=== PATIENT | female | born 1985 | race Asian ===

== ENCOUNTER → 2017-02-02 | Outpatient (CLI) | payer BC ==
[~2017-02-02] MED LIST: MTR600X PO; OXYC5TAB PO; PRENTAB26 PO
--- NOTE | 2017-02-02 14:56 | DIAGNOSTIC IMAGING REPORT ---
THORACIC SPINE 3 VIEWS ROUTINE CLINICAL HISTORY: BACK PAIN COMPARISON STUDY: No previous studies for comparison. FINDINGS: The paraspinal line is not displaced. There is a minimal spinal curvature. There are minor degenerative changes. No fractures subluxations or destructive lesions are visualized on conventional radiographic evaluation. IMPRESSION: Minor degenerative change. No fractures subluxations or destructive lesions are visualized Electronically signed by: Asad Epps M.D. 02/02/2017 2:55 PM Dictated Date/Time: 02/02/2017 2:54 PM
== END | disposition home or self-care (01) ==
LOC: C.RAD1850 14:38
PROVIDERS: ATTEND Family Medicine
DX: M54.9 Dorsalgia, unspecified (principal)

== ENCOUNTER → 2017-02-26 | Outpatient (CLI) | payer BC ==
--- NOTE | 2017-02-26 09:57 | DIAGNOSTIC IMAGING REPORT ---
CT NECK WITHOUT INTRAVENOUS CONTRAST HISTORY: Right-sided neck tenderness. Hoarseness of voice. REFLUX TECHNIQUE: Multiaxial CT images of the neck were performed without the use of intravenous contrast. COMPARISON STUDY: None. FINDINGS: The visualized brain parenchyma and orbits are unremarkable. Evaluation for a mass within the neck is suboptimal without the use of intravenous contrast. However, there is no significant lymphadenopathy or masses identified within the neck. Scattered cervical lymph nodes are subcentimeter in short axis diameter and do not meet CT criteria for pathologic involvement. The visualized lungs are clear. No suspicious lytic or blastic osseous lesions. The visualized paranasal sinuses and mastoid air cells are clear. There is an unerupted 8 mm tooth within the right maxilla. A slightly heterogeneous thyroid gland. There is suggestion of a 6 mm left thyroid nodule. There are few punctate calcifications within the bilateral palatine tonsils. Otherwise, the major mucosal airway surfaces are intact. The epiglottis and prevertebral soft tissues are normal in thickness. The parotid and submandibular glands are symmetric. IMPRESSION: 1. No definite lymphadenopathy or masses with in this unenhanced study of the neck. 2. Incidental note is made of an unerupted tooth within the right maxilla. 3. A few punctate calcifications within the bilateral palatine tonsils. Electronically signed by: Alonso Alonso M.D. 02/26/2017 9:56 AM Dictated Date/Time: 02/26/2017 9:49 AM
== END | disposition home or self-care (01) ==
LOC: C.CTS 09:19
PROVIDERS: ATTEND Family Medicine
DX: R49.0 Dysphonia (principal)

== ENCOUNTER 2023-06-08 11:15 | Observation (INO) ==
--- NOTE | 2023-06-08 12:53 | Emergency Department Note ---
History of Present Illness General Chief complaint: Arm Pain Stated complaint: L ARM INFECTION GETTING WORSE IN ER LAST FRI Time Seen by Provider: 06/08/23 12:27 History of Present Illness Maximum Pain Intensity: 8 38-year-old female who presents to the emergency department for evaluation of infection of the left forearm. Patient was evaluated in the ED on 06/05 for similar symptoms. She was initially placed on doxycycline by her PCP on 06/04 for cellulitis of her left forearm. On 06/05 there was evidence of an abscess to the left volar forearm which was I&D. She was advised to transition to Keflex and Bactrim antibiotics if she saw no improvement with the doxycycline in 48 hours. Patient states she started Keflex/Bactrim yesterday morning. She is concerned that her infection is getting worse as the redness is not spreading and is getting more painful and warmer to touch. She denies any fever/chills, nausea/vomiting. She does state that she feels tired and has low energy. She is not exactly sure what the initial wound was from. She has been performing daily dressing changes. She denies any further drainage from the wound. Patient reports her brother and mother have an allergy to penicillins where they "passed out" she does not personally have any known allergies. She is tolerating the Keflex and Bactrim without any issues. Home Medications Medication Instructions Recorded Confirmed Type cephalexin 500 mg capsule 500 mg PO Q8H 7 days #21 caps 06/05/23 06/08/23 Rx sulfamethoxazole 800 1 tab PO BID cellulitis 7 days 06/05/23 06/08/23 Rx mg-trimethoprim 160 mg tablet #14 tabs (Bactrim DS) hydroxyzine HCl 25 mg tablet 25 mg PO HS 06/08/23 06/08/23 History Allergies Allergy/AdvReac Type Severity Reaction Status Date / Time Penicillins Allergy Severe SHORTNESS Verified 06/08/23 15:18 OF BREATH Past Med/Surg History Medical History Dermatographia Uterine size-date discrepancy History of Transitory mood disturbance History of palpitations Oligomenorrhea History of History of sebaceous cyst History of menorrhagia History of cervicitis Fertility testing Dichorionic diamniotic twin , antepartum Carrier of group B Streptococcus Surgical History No pertinent past surgical history History of excision of lesion Face History of dilation and curettage History of section Family History Mother Fibroids Denies family history of Ovarian cancer Breast cancer Colorectal cancer Social History Smoking Status: Never smoker Do You Dip or Chew Tobacco: No; Hx Alcohol Use: No Hx Substance Use: No Preferred Language: French Communication Ability: Effective Cook Pie Required: No Beliefs That Will Affect Care: None Current Living Situation: Spouse Other Information That Helps Us Care for You: No Feels Safe at Home: Yes Safety Concerns: Feels Safe At This Time Assistive Devices: None Physical Exam Vital Signs Vital Signs - 24 hr 06/08/23 12:09 Temperature 36.7 C Temperature Source Temporal Artery Scan Pulse Rate 87 Respiratory Rate 18 Blood Pressure 124/86 Blood Pressure Mean 98 Pulse Oximetry 100 Oxygen Delivery Method Room Air Sepsis New/Unexplained Change in Mental Status No Sepsis Action Taken by Nursing No Action Required Constitutional: alert and oriented x3. no acute distress. nontoxic Respiratory: lungs are clear to auscultation without wheezes, rhonchi, or rales bilaterally. equal chest rise. normal respiratory effort, no accessory muscle use. Cardiovascular: normal heart sounds without murmur. regular rate and rhythm. MSK: left volar forearm erythematous and indurated from wrist to AC fossa. Distal residual abscess noted, no fluctuance or active drainage. Infection does not cross joint line. Wrist and elbow ROM intact. Peripheral vascular: upper extremities warm and well perfused with palpable radial pulses. Brisk cap refill. Sensation grossly intact Psych:appropriate mood and affect. Course Administered Medications Daptomycin 200 mg/ Syringe 4 mls @ 2 mls/min IV Q24H [facility]; Protocol Stop: 06/15/23 16:59 Last Admin: 06/08/23 17:31 Dose: 2 mls/min Documented By: [facility] Discontinued Medications Ceftriaxone Sodium (Rocephin) 2,000 mg in 50 mls @ 100 mls/hr IV NOW STA Stop: 06/08/23 13:17 Last Infusion: 06/08/23 13:28 Dose: Infused Documented By: Admin: 06/08/23 13:06 Dose: 100 mls/hr Documented By: [facility] Medical Decision Making Differential Diagnosis cellulitis, abscess, foreign body, insect bite, MRSA, sepsis as well as other pathologies Laboratory Data Attestation: I reviewed the patient's lab results. 06/08/23 13:01 06/08/23 13:01 Lab Results 06/08/23 Range/Units 13:01 WBC 5.82 (4.8-10.8) K/ul RBC 4.32 (4.20-5.40) M/uL Hgb 13.0 (12.0-16.0) g/dl Hct 39.8 (37.0-47.0) % MCV 92.1 (80.0-100.0) fL MCH 30.1 (25.0-34.0) pg MCHC 32.7 (32.0-36.0) g/dL RDW Std Deviation 43.7 (36.4-46.3) fL RDW Coeff of Leia 12.9 (11.5-14.5) % Plt Count 281 (130-400) K/uL MPV 9.7 (9.4-12.4) fL Immature Gran % (Auto) 0.3 % Neut % (Auto) 69.7 % Lymph % (Auto) 20.8 % Mobile % (Auto) 6.7 % Eos % (Auto) 2.2 % Baso % (Auto) 0.3 % Neut # (Auto) 4.05 (1.40-6.50) K/uL Lymph # (Auto) 1.21 (1.20-3.40) K/uL Mobile # (Auto) 0.39 (0.11-0.59) K/uL Eos # (Auto) 0.13 (0.00-0.50) K/uL Baso # (Auto) 0.02 (0.00-0.20) K/uL Immature Gran # (Auto) 0.02 (0.01-0.20) K/uL Sodium 137 (136-145) mmol/L Potassium 3.6 (3.5-5.1) mmol/L Chloride 103 (98-107) mmol/L Carbon Dioxide 26 (21-32) mmol/L Anion Gap 8 (3-11) BUN 12 (6-23) mg/dl Creatinine 0.73 (0.6-1.2) mg/dl Est Cr Clr Drug Dosing 86.4 ml/min Est GFR ( Amer) 121.1 ml/min Est GFR (Non-Af Amer) 104.5 ml/min BUN/Creatinine Ratio 16.4 (10-20) Glucose 83 (70-99(Fasting)) mg/dl Calcium 9.7 (8.6-10.3) mg/dl Total Bilirubin 0.4 (0.2-1.0) mg/dl AST 15 (13-39) U/L ALT 11 (7-52) U/L Alkaline Phosphatase 51 (34-104) U/L Total Protein 8.4 H (6.0-8.3) gm/dl Albumin 4.5 (3.4-5.0) gm/dl Globulin 3.9 (2.5-4.0) gm/dl Albumin/Globulin Ratio 1.2 (0.9-2) Anaplasma Smear See Comment Babesia Smear See Comment Lyme Disease Screen Negative (Negative) MDM Narrative 38-year-old female who presents to the emergency department for evaluation of left arm infection. Reviewed pertinent visits and past medical history performed. Vital signs in ED stable, afebrile. Patient was seen and evaluated as above. She is currently being treated for left forearm cellulitis. I&D performed of an abscess on 06/05. Unfortunately wound cultures were not obtained. She was initially on doxycycline since 06/04 but transition to Keflex and Bactrim yesterday for concerns of no improvement. She returned to the emergency department for concerns of worsening infection despite treatment. IV access was established and labs were obtained. CBC without leukocytosis or acute anemia. CMP without electrolyte abnormalities. Renal function within normal limits. LFTs unremarkable. On exam, patient is nontoxic-appearing in no acute distress. The left volar forearm is erythematous and indurated from the wrist to the AC fossa. On the distal forearm there is a small superficial abscess noted. There is no active drainage. The left upper extremity is neurovascularly intact. She was medicated with IV Rocephin empirically. She declined need for pain medication. Upon reassessment, patient remained stable without concerns. She was updated on all exam findings and test results. Workup today consistent with cellulitis to the left arm. She does not appear septic. Labs and vital signs reassuring. At this time, I do feel patient would benefit from admission to the hospital for IV antibiotics as this is likely outpatient treatment failure. She was agreeable to plan. Case was discussed with hospitalist, Jatinder Tomlin PA-C, who graciously accepted patient to their service for continued management. She was admitted in stable condition. Impression & Plan Cellulitis and abscess of upper extremity Discharge Plan Visit Data Chief Complaint: Arm Pain Stated Complaint: L ARM INFECTION GETTING WORSE IN ER LAST FRI ED Provider: Nikhil Vaughn ED Midlevel Provider: Isaura Patel Discharge Problem: Cellulitis and abscess of upper extremity Patient Disposition: Admitted As Inpatient Discharge Instructions Interventions: ED Discharge Assessment Last Done: 06/08/23 17:51
[2023-06-08] MEDS: cefTRIAXone SODIUM 2,000 MG/50 ML BAG IV STA (13:06)
[2023-06-08 13:24] LABS: Basophils # (auto) 0.02 K/uL (0.00-0.20); Basophils % (auto) 0.3 %; Eosinophils # (auto) 0.13 K/uL (0.00-0.50); Eosinophils % (auto) 2.2 %; Hematocrit (blood only) 39.8 % (37.0-47.0); Immature Granulocytes # (auto) 0.02 K/uL (0.01-0.20); Immature Granulocytes % (auto) 0.3 %; Lymphocytes # (auto) 1.21 K/uL (1.20-3.40); Lymphocytes % (auto) 20.8 %; Mean Corpuscular Hemoglobin 30.1 pg (25.0-34.0); Mean Corpuscular Hgb Conc 32.7 g/dL (32.0-36.0); Mean Corpuscular Volume 92.1 fL (80.0-100.0); Mean Platelet Volume 9.7 fL (9.4-12.4); Monocytes # (auto) 0.39 K/uL (0.11-0.59); Monocytes % (auto) 6.7 %; Neutrophils # (auto) 4.05 K/uL (1.40-6.50); Neutrophils % (auto) 69.7 %; Platelet Count 281 K/uL (130-400); RDW Coefficient of Variation 12.9 % (11.5-14.5); RDW Standard Deviation 43.7 fL (36.4-46.3); Red Blood Count 4.32 M/uL (4.20-5.40); White Blood Count 5.82 K/ul (4.8-10.8)
[2023-06-08 13:42] LABS: Albumin Globulin Ratio 1.2 (0.9-2); Albumin Level 4.5 gm/dl (3.4-5.0); BUN Creatinine Ratio 16.4 (10-20); Bilirubin,Total 0.4 mg/dl (0.2-1.0); Calcium 9.7 mg/dl (8.6-10.3); Creatinine Clr Calc Pharmacy 86.4 ml/min; Est GFR (African American) 121.1 ml/min; Est GFR (Non-African American) 104.5 ml/min; Globulin 3.9 gm/dl (2.5-4.0); Potassium 3.6 mmol/L (3.5-5.1); Total Protein 8.4 gm/dl (6.0-8.3)
[2023-06-08] MEDS ORDERED: ACETAMINOPHEN 325 MG TAB PO PRN (14:56)
[2023-06-08] MEDS ORDERED: traMADol HCL 50 MG TABLET PO PRN (15:27)
--- NOTE | 2023-06-08 15:42 | History & Physical Report ---
Date of Service June 08, 2023 Assessment & Plan (1) Cellulitis and abscess of upper extremity: Plan: -Admit to med/surge -Currently stable and non-toxic appearing -Returned to the ED on 06/08/23 after having a left forearm abscess drained in the [facility] ED on 06/05/23 -Patient was on Doxycycline from 06/04-06/06 and was switched to Keflex and Bactrim starting 06/07/23 without improvement in symptoms -She has been afebrile and without leukocytosis -While the patient's symptoms did not improve with Doxycycline, we will obtain lyme testing to rule out possible infection for completon of her workup -See Dr. Ramsey's attestation for description of bedside US and drainage -Culture or drained fluid was obtained -S/P one dose of Ceftriaxone in the ED -For now we will continue with Ceftriaxone and Daptomycin -Follow culture results -PRN tylenol and tramadol for pain -Regular diet -AM CBC, BMP Plan The patient was discussed with Dr. Ramsey at the time of the admission History of Present Illness Chief Complaint: Worsening left forearm infection Primary Care Provider: Dangeloheather Evans Vela is a 38 year old female with no significant PMH who presented to the [facility] ED on 06/08/23 due to concerns for worsening left forearm infection/cellulitis. She remained stable in the ED with CBC and CMP WNL. Per the patient, she originally noted a small, round, and firm blister-like abnormality on the ventral aspect of her left forearm approximately 2-3 months ago. She denies any trauma or skin damage to the area prior to this abnormality forming. It was not bothering her so she left it alone. On 06/03 the area started to become erythematous and tender to palpation. She was seen by her PCP on 06/04 for this issue, they attempted a needle aspiration of the site but were unable to obtain a sample. She was started on Doxycycline on 06/04. She was seen in the PCP's office again on 06/05 as the erythema, swelling, and pain were increasing. Due to this they sent her to the ED for further evaluation. Per the patient and the ED note, the patient had the area lanced. She did not watch herself, but per the ED documentation the patient did have pustulous drainage. The area was reported to be irrigated thoroughly with normal saline and the area was inspected for possible foreign bodies. She was instructed to continue her Doxycycline for a total of 48 hours from initial prescription on 06/04/23. She was prescribed Keflex and Bactrim to be started if her symptoms progressed after 48 hours of Doxycycline. She states that she started the Bactrim and Keflex on the morning of 06/07 due to progressive erythema, swelling, and pain. Due to her symptoms progressing on Bactrim and Keflex she returned to the ED today. She denies recent fever, chills, nausea, vomiting, chest pain, SOB, LUE paresthesias, difficulty closing/opening left hand, and recent trauma to the r egion. After discussing risks/benefits of attempting another incision/drainage of the abscess, the patient elected to proceed. A bedside, US Guided I&D of the left forearm abscess was performed by Dr. Ramsey with culture obtained. Please refer to Dr. Ramsey's attestation for any changes to the treatment plan Allergies Allergy/AdvReac Type Severity Reaction Status Date / Time Penicillins Allergy Severe SHORTNESS Verified 06/08/23 15:18 OF BREATH Home Medications Medication Instructions Recorded Confirmed Type cephalexin 500 mg capsule 500 mg PO Q8H 7 days #21 caps 06/05/23 06/08/23 Rx sulfamethoxazole 800 1 tab PO BID cellulitis 7 days 06/05/23 06/08/23 Rx mg-trimethoprim 160 mg tablet #14 tabs (Bactrim DS) hydroxyzine HCl 25 mg tablet 25 mg PO HS 06/08/23 06/08/23 History Past Med/Surg History Medical History Dermatographia Uterine size-date discrepancy History of Transitory mood disturbance History of palpitations Oligomenorrhea History of History of sebaceous cyst History of menorrhagia History of cervicitis Fertility testing Dichorionic diamniotic twin , antepartum Carrier of group B Streptococcus Surgical History No pertinent past surgical history History of excision of lesion Face History of dilation and curettage History of section Family History Mother Fibroids Denies family history of Ovarian cancer Breast cancer Colorectal cancer Social History Smoking Status: Never smoker Do You Dip or Chew Tobacco: No; Hx Alcohol Use: No Hx Substance Use: No Preferred Language: Spanish Feels Safe at Home: Yes Physical Exam Physical Exam: Physical Exam: General: In no acute distress, stated age, well-nourished, good hygiene HEENT: Normocephalic, atraumatic, no scleral icterus, pupils around round, symmetrical, and reactive to light, moist mucus membranes, trachea midline, no t hyromegaly Chest/Pulm: No respiratory distress, symmetrical chest expansion, clear breath sounds throughout Cardiac: RRR, no murmurs noted Abdomen: Negative for ascites and bruising, normoactive bowel sounds, soft, non-tender to palpation throughout Musculoskeletal: No acute trauma noted on inspection of the left elbow, forearm, wrist, and hand, patient able to open/close left hand without limitation or significant pain Extremities: Radial, dorsalis pedis, and posterior tibial pulses are intact and symmetrical, no edema noted in the BL LE's Skin: Central area of swelling/erythema on the ventral aspect of the left forearm with large surrounding area of erythema from the left proximal wrist to the mid left forearm, no current drainage note from the central raised area, no signs of swelling/erythema at the left elbow or the rest of the LUE Neuro: Alert and oriented to person, place, month, year, and president, no focal defects, no tremors noted Psych: No acute distress, calm and cooperative during the exam Results & Data Results & Data Vital Signs (Past 12 Hours) Vital Signs Temp Pulse Resp BP Pulse Ox O2 Del Method 06/08/23 12:09 36.7 C 87 18 124/86 100 Room Air Laboratory Results Abnormal lab results 06/08/23 Range/Units 13:01 Total Protein 8.4 H (6.0-8.3) gm/dl Code Status & VTE Plan Code Status Full code VTE Prophylaxis Plan VTE Prophylaxis will be ordered: Yes Supervising Physician Co-Signing Physician Notes Patient seen and examined, chart reviewed, case discussed with Jatinder Tomlin PA-C and I agree with the assessment and plan as above except as otherwise noted Labs and images reviewed Rayna is a 38-year-old female with a past medical history of upper extremity cellulitis and reflux was recently seen in the ER on 06/05/2023 for evaluation of a left forearm infection and abscess drainage. She had a left volar forearm I&D performed at that time, unfortunately no culture was sent. She had been on doxycycline for cellulitis by her PCP since 06/04; she was transitioned to Keflex/Bactrim which she started yesterday morning. She feels the redness has increased in warmth, intensity, and pain and the pain has been spreading up her forearm. Bedside evaluation has had clear expansion of erythema past previously marked borders with a small approximately 1 cm raised area of skin with overlying scab. No pain on finger flexion/extension/no signs of tendon involvement. Overlying raised area was evaluated with bedside ultrasound. A tiny subcm superficial focus of fluid underlying scabbed area less than 0.5 centimeter deep. Patient arm was cleaned, prepped with chlorhexidine and allowed to dry. Name/ confirmed. Small pocket was unroofed with an 11 blade scalpel and had immediate return of a small amount of mixed bloody/cloudy fluid. Wound culture was collected at the bedside and sent for culture. No complications during drainage/unroofing. Will admit on rocephin/dapto. Agree w/ assessment and management as above. PG Care Time/CCT Total # of Minutes Spent Total Time Spent with Patient: Total time spent is greater than 50% in coordination of care (as documented) at patient's floor/unit and/or counseling patient: Coding Level of Care Code 17948 INT INP/OBS CARE 3/75MIN History Comprehensive Exam Comprehensive Medical Decision Making High Complexity Diagnoses Cellulitis and abscess of upper extremity L03.119; L02.419
[2023-06-08] MEDS: DAPTOmycin 200 MG in SYRINGE 0 ML IV SCH (17:31)
--- OUTSIDE RECORDS SUMMARY | 2023-06-08 19:44 | External Medical Summary | Continuity of Care Document ---
Author Name Unknown Organization [address] [id number] Care Team Providers Care Planting Machine Operator Name Role Phone Damir Krueger Primary Care Physician [phone] [id number] Date(s): 06/05/23 - 06/05/[address] [address] [phone] Encounter Diagnosis Body mass index [BMI] 22.0-22.9, adult(Discharge Diagnosis) - 06/05/23 Cellulitis of arm(Discharge Diagnosis) - 06/05/23 Discharge Disposition: Home or Self Care Attending Physician: DO Real Allison B Allergies, Adverse Reactions, Alerts Substance Reaction Severity Status PCN (penicillin) syncope Active Assessment and Plan Extracted from: Title:Office Visit Note Author:DO Real Allis on B Date:06/05/23 1.Cellulitis of arm Patient with worsening symptoms and spreading cellulitis. Pain has worsened.Has only been evaluatedyesterday, with symptomssignificantly worsening per patient report. To ER for evaluation and possible IV antibiotics. Patient in agreement. [facility] notified. [facility] notified. Immunizations Given and Recorded Vaccine Date Status Refusal Reason SARS-CoV-2 (COVID-19) mRNA BNT-162b2 vax 1 04/06/21 Recorded SARS-CoV-2 (COVID-19) mRNA BNT-162b2 vax 2 08/16/20 Recorded SARS-CoV-2 (COVID-19) mRNA BNT-162b2 vax 3 07/26/20 Recorded influenza virus vaccine, inactivated 01/31/21 Give n influenza virus vaccine, inactivated 01/03/20 Give n tetanus/diphtheria/pertuss, acel (Tdap) 4 07/19/15 Recorded diphtheria/pertussis, whole cell/tetanus 5 07/19/15 Recorded human papillomavirus vaccine 6 07/08/10 Recorded 1Result Comment: 2022-04-22: Historical information-source unspecified 2Result Comment: 2022-04-22: Historical information-source unspecified 3Result Comment: 2022-04-22: Historical information-source unspecified 4Result Comment: 2022-04-22: Historical information-source unspecified 5Result Comment: 2022-04-22: Historical information-source unspecified 6Result Comment: 2022-04-22: Historical information-source unspecified Medications doxycycline hyclate 100 mg oral capsule Start: 06/04/23 16:21:00 EST, 1 cap, PO, bid, Disp# 14 cap, Refills: 0, [facility] Start Date: 06/04/23 Stop Date: 06/11/23 Status: Ordered hydrOXYzine hydrochloride 10 mg oral tablet Start: 02/03/22 8:04:00 EDT, 1 tab, PO, tid, PRN: as needed for anxiety Start Date: 02/03/22 Status: Ordered Mental Status 06/05/23 Barriers to Learning one year None evide nt Mandatory Health Literacy Documentation Yes Health Literacy Communication Barriers N ever Primary Language Ethiopian Problem List Condition Confirmation Course Effective Dates Status Health St atus Informant Acne vulgaris Confirmed Active Low back pain Confirmed Active Thoracic back pain Confirmed Active Hives Confirmed Active Diagnosis Diagnosis Type Effective Dates Health Status Clinical Service Informant Body mass index [BMI] 22.0-22.9, adult Discharge Diagnosis 06/05/23 Non-Specified Cellulitis of arm Discharge Diagnosis 06/05/23 Procedures Procedure Date Related Diagnosis Body Site Status Transvaginal ultrasound scan 1 12/17/22 Completed Chest X-ray 2 04/22/22 Completed Mammogram 3 03/01/21 Completed Colonoscopy 4 02/04/21 Completed EGD - Esophagogastroduodenoscopy 5 02/04/21 Completed Plain X-ray of right shoulder 6 12/12/20 Completed Mammogram 7 03/14/20 Completed X-ray of thoracic spine 8 02/02/17 Completed Upper GI endoscopy 9, 10 04/10/16 Completed delivery Complet ed 1IMPRESSION: Normal transvaginal pelvic ultrasound. 2Impression: No active disease in the chest. 3No mammographic evidence of malignancy in either breast, with no targested sonographic abnormality in the area of most porminent pain in the left inferior breast. Recommened clinical follow up for cyclical bilateral breast pain, and recommend routine bilatleral screening mammograms starting at the age of 40 4Ileum was normal. The sigmoid colon and ascending colon are normal, biopsiled. One 2 mm polyp in the rectum, removed with cold biopsy forceps. Resected and retrieved. Redundant colon. The exam was otherwise normal. Pathology showed 1 hyperplastic polyp. Random colon biopsies were normal. Repeat in 10 years. n 5Z-line regular, 40 cm from the incisors. Normal lower third of esophagus, biopsied. Normal mid esophagus, biopsied. Normal stomach. Nodular mucosa in duodenal bulb likely ectopic tissue biopsied with cold forceps. Estimated blood loss minimal. Normal second portionof the duodenu, biopsied. The examination was otherwise normal. Pathology showed no significant abnormalities. 6impression: No acute fracture or dislocation 7Impression: ACR BI-RADS CATEGORY 1: Negative, Ultrasound ACR BI -RAD - NEGATIVE No suspicious mammographic or sonographic abnormality at the sites of intermittent, left breast pain pointed out by the patient. There is no mammographic or sonographic evidence of malignancy. Recommend clinical follow up for left breast pain, and recommend routine bilateral screening mammograms sta rting at the age of 40 unless otherwise clinically indicated. 8Minor degenerative change. No fractures subluxations or destructive lesions are visualized. 9helicobacter -neg 10Normal upper third of esophagus and middle third of esophagus. Low grade of narrowing and mild schatzki ring. Dilated. Normal esophagus. Congested and granular mucosa in the cardia. Biopsied Nomal examined duodenum. Normal gastric body and antrum. Biopsied. Vital Signs Most recent to oldest [Reference Range]: 1 Height 162.2 cm (06/05/23 8:16 AM) Patient Weight 60.4 kg (06/05/23 8:16 AM) Body Mass Index 22.96 kg/m2 (06/05/23 8:16 AM) Temperature [36.5-37.9 DegC] 36.5 DegC (06/05/23 8:16 AM) Heart Rate 83 bpm (06/05/23 8:16 AM) Respiratory Rate 16 br/min (06/05/23 8:16 AM) Blood Pressure 124/80mmHg (06/05/23 8:16 AM) Cuff Pulse Pressure 44 mmHg (06/05/23 8:16 AM) Social History Social History Type Response Tobacco 1 Smoking Status Never smoked cigaret cait Sex Female 1none FCM Outpt Note * DO Real Allison B: PERFORM Event Display: FCM Outpt Note Authored Date: [id number] Chief Complaint c/o worsening pain and redness from sore on LFA, was seen 06-04-23 and started doxycycline last night History of Present Illness Patient is a 38 year old female that presents to the office for a short term follow up. Presents to the office today for worseningskin lesion. She was seen yesterdayfor alesion that hadbeen present for 4 months.The area was openedand drained in the office yesterday.She was prescribed doxycycline 1 tab p.o. twice daily for 7 days. She presents to the office today with worsening symptoms. She feels that thearea is more swollen andtracking up her arm. Has pain in her left armpit. She states that the pain is 8 out of 10in the area. She has noticed some rednessthat is outside of thearea. She states that she is unable to sit due to the pain and has to pace. No feversor chills. No chest pain. She states that she feelsill. She has been taking the doxycycline as prescribed and hashad 3 doses. Last Tetanus was 2015. Review of Systems Constitutional: No fever, No chills, +fatigue._ Respiratory: No shortness of breath, No cough, No wheezing. _ Cardiovascular: no lightheadedness/presyncope, No chest pain, No palpitations._ Skin:+rash, No pruritus, No breakdown. Erythema and pain. Neurologic:No abnormal balance, No numbness, No tingling, No headache._ Physical Exam Vitals & Measurements T:36.5C HR:83(Monitored) RR:16 BP:124/80 SpO2:98% HT:162.2cm WT:60.400kg(Dosing) WT:60.4kg BMI:22.96 PHQ2 Data(Data Documented on:06/05/2023 08:16) Emotional health assessment NEGATIVE General: _Alert and oriented, pacing in room second to pain. HEENT: _ Normocephalic, TM clear, Nl gross hearing, moist oral mucosa _ Cardiovascular: _Normal rate, Regular rhythm, No murmur, No gallop. Respiratory: _Lungs are clear to auscultation, Respirations are non-labored, Breath sounds are equal Integumentary: _Warm, Dry, [place]. Left forearm with 7 cm X 4 cm erythema outside of marking. +edema. Lymphadenopathy in the left axilla. Assessment/Plan 1.Cellulitis of arm Patient with worsening symptoms and spreading cellulitis. Pain has worsened.Has only been evaluatedyesterday, with symptomssignificantly worsening per patient report. To ER for evaluationand possible IV antibiotics. Patient in agreement. [facility] notified. [facility] notified. Attestation Time:Total time spent with this patient on day of evaluation including chart review, ordering, education and coordination of care elements: 21_ minutes Problem List/Past Medical History Ongoing Acne vulgaris Hives Low back pain Thoracic back pain Historical Diarrhea Dysphagia GERD (gastroesophageal reflux disease) Procedure/Surgical History Transvaginal ultrasound scan (12/17/2022)Chest X-ray (04/22/2022)Mammogram (03/01/2021)Colonoscopy (02/04/2021)EGD - Esophagogastroduodenoscopy (02/04/2021)Plain X-ray of right shoulder (12/12/2020)Mammogram (03/14/2020)X-ray of thoracic spine (02/02/2017)Upper GI endoscopy (04/10/2016) delivery Medications doxycycline(doxycycline hyclate 100 mg oral capsule), 100 mg= 1 cap, PO, bid hydrOXYzine(hydrOXYzine hydrochloride 10 mg oral tablet), 10 mg= 1 tab, PO, tid, PRN Allergies PCN (penicillin)syncope Social History Smoking Status Never smoked cigarettes Alcohol - Comments: none Employment/School Status:Employed Description:[employer] Home/Environment Lives with:Children, Father, Spouse - Comments: 5 mth old twins. Grew up in [place]. In [place] for 8yrs. Other - Comments: tetanus shot - ? 3 yrs ago Tobacco - No Risk - Comments: none Family History Type II diabetes mellitus: Father. Health Status Family Member(s) Immunizations Vaccine Date Status SARS-CoV-2 (COVID-19) mRNA BNT-162b2 vax 04/06/2021 Recorded Comments : 2022-04-22: Historical information-source unspecified influenza virus vaccine, inactivated 01/31/2021 Given SARS-CoV-2 (COVID-19) mRNA BNT-162b2 vax 08/16/2020 Recorded Comments : 2022-04-22: Historical information-source unspecified SARS-CoV-2 (COVID-19) mRNA BNT-162b2 vax 07/26/2020 Recorded Comments : 2022-04-22: Historical information-source unspecified influenza virus vaccine, inactivated 01/03/2020 Given tetanus/diphtheria/pertuss, acel (Tdap) 07/19/2015 Recorded Comments : 2022-04-22: Historical information-source unspecified diphtheria/pertussis, whole cell/tetanus 07/19/2015 Recorded Comments : 2022-04-22: Historical information-source unspecified human papillomavirus vaccine 07/08/2010 Recorded Comments : 2022-04-22: Historical information-source unspecified Recommendations Health Maintenance Pending(in the next year) OverDue Adult Influenza Vaccine due10/17/22and every 1year Due Adult COVID-19 Vaccination due06/05/23Unknown Frequency Adult Folic Acid Supplementation due06/05/23and every 3year Adult Social Determinants of Health Screening due06/05/23Unknown Frequency Satisfied(in the past 1 year) Satisfied Body Mass Index on06/05/23.Satisfied by [facility] Caro Heather Electronic Signature on File Electronically Reviewed/Signed by: Colette Real DO Author Signature Dt/Tm:06/05/2023 09:11 AM Department of Family Medicine [facility] Patient Care team information Care Team Personnel Name: MD Bonds Christopher Position: Physician - Family Med Member Role: Lifetime Relationship Address: Address: [address] [place] [address] [place] Name: MD Krueger Dongsheng Position: Physician - Family Med Member Role: Primary Care Provider Address: Address: [address] [place] [address] [place] Care Team Related Persons Name: MASSIMO ARROYO Address: home No Address Provided
--- OUTSIDE RECORDS SUMMARY | 2023-06-08 19:44 | External Medical Summary | Continuity of Care Document ---
Author Name Unknown Organization [facility] [address] [place] [id number] Care Team Providers Care Merchandise Supervisor Name Role Phone Damir Krueger Primary Care Physician [phone] Encounter [facility] [id number] Date(s): 06/04/23 - 06/04/23 [facility] [address] [address] [phone] Encounter Diagnosis Body mass index [BMI] 22.0-22.9, adult(Discharge Diagnosis) - 06/04/23 Blister(Discharge Diagnosis) - 06/04/23 Cellulitis(Discharge Diagnosis) - 06/04/23 Discharge Disposition: Home or Self Care Attending Physician: MD Krueger Dongsheng Allergies, Adverse Reactions, Alerts Substance Reaction Severity Status PCN (penicillin) syncope Active Immunizations Given and Recorded Vaccine Date Status [...] bid, Disp# 14 cap, Refills: 0, Pharmacy: [facility] Start Date: 06/04/23 Stop Date: 06/11/23 Status: Ordered hydrOXYzine hydrochloride 10 mg oral tablet Start: 02/03/22 8:04:00 EDT, 1 tab, PO, tid, PRN: as needed for anxiety Start Date: 02/03/22 Status: Ordered Mental Status 06/04/23 Barriers to Learning one year None evide nt Mandatory Health Literacy Documentation Yes Health Literacy Communication Barriers N ever Primary Language South Sudanese Problem List Condition Confirmation Course Effective Dates Status Health St atus Informant Acne vulgaris Confirmed Active Low back pain Confirmed Active Thoracic back pain Confirmed Active Hives Confirmed Active Diagnosis Diagnosis Type Effective Dates Health Status Clinical Service Informant Blister Discharge Diagnosis 06/04/23 Body mass index [BMI] 22.0-22.9, adult Discharge Diagnosis 06/04/23 Non-Specified Cellulitis Discharge Diagnosis 06/04/23 Procedures Procedure Date Related Diagnosis Body Site [...] oldest [Reference Range]: 1 Height 162.2 cm (06/04/23 3:07 PM) Patient Weight 60.0 kg (06/04/23 3:07 PM) Body Mass Index 22.81 kg/m2 (06/04/23 3:07 PM) Blood Pressure 122/84mmHg (06/04/23 3:07 PM) Social History Social History Type Response Tobacco 1 Smoking Status Never smoked cigaret cait Sex Female 1none Patient Care team information Care Team Personnel Name: MD Bonds Christopher Position: Physician - Family Med Member Role: Lifetime Relationship Address: Address: [address] [place] [address] [place] Name: MD Krueger Dongsheng Position: Physician - Family Med Member Role: Primary Care Provider Address: Address: [address] [place] [address] [place] Care Team Related Persons Name: MASSIMO ARROYO Address: home No Address Provided
[2023-06-08] MEDS: hydrOXYzine HCl 25 MG TAB PO SCH (20:17)
[2023-06-09 04:01] LABS: Basophils # (auto) 0.03 K/uL (0.00-0.20); Basophils % (auto) 0.6 %; Eosinophils # (auto) 0.22 K/uL (0.00-0.50); Eosinophils % (auto) 4.4 %; Hematocrit (blood only) 35.3 % (37.0-47.0); Hemoglobin 11.7 g/dl (12.0-16.0); Immature Granulocytes # (auto) 0.01 K/uL (0.01-0.20); Immature Granulocytes % (auto) 0.2 %; Lymphocytes # (auto) 1.47 K/uL (1.20-3.40); Lymphocytes % (auto) 29.2 %; Mean Corpuscular Hemoglobin 30.2 pg (25.0-34.0); Mean Corpuscular Hgb Conc 33.1 g/dL (32.0-36.0); Mean Corpuscular Volume 91.2 fL (80.0-100.0); Mean Platelet Volume 9.8 fL (9.4-12.4); Monocytes # (auto) 0.57 K/uL (0.11-0.59); Monocytes % (auto) 11.3 %; Neutrophils # (auto) 2.74 K/uL (1.40-6.50); Neutrophils % (auto) 54.3 %; Platelet Count 253 K/uL (130-400); RDW Coefficient of Variation 13.1 % (11.5-14.5); RDW Standard Deviation 43.1 fL (36.4-46.3); Red Blood Count 3.87 M/uL (4.20-5.40); White Blood Count 5.04 K/ul (4.8-10.8)
[2023-06-09 04:10] LABS: BUN Creatinine Ratio 15.4 (10-20); Creatinine Clr Calc Pharmacy 97.1 ml/min; Est GFR (African American) 130.5 ml/min; Est GFR (Non-African American) 112.6 ml/min
[2023-06-09] MEDS: cefTRIAXone SODIUM 2,000 MG in DEXTROSE 5 % MINI-B 50 ML IV SCH (14:49)
--- NOTE | 2023-06-09 18:42 | Hospitalist Progress Note ---
Date of Service June 09, 2023 Assessment & Plan (1) Cellulitis and abscess of upper extremity: Plan: - -Currently stable and non-toxic appearing -Returned to the ED on 06/08/23 after having a left forearm abscess drained in the [facility] ED on 06/05/23 -Patient was on Doxycycline from 06/04-06/06 and was switched to Keflex and Bactrim starting 06/07/23 without improvement in symptoms -Culture or drained fluid was obtained -S/P one dose of Ceftriaxone in the ED -For now we will continue with Ceftriaxone and Daptomycin -PRN tylenol and tramadol for pain Admission and Anticipated Discharge Date Admission Date: June 08, 2023 Subjective pt has redness slightly outside of demarcation lines, painful and also painful to move hand no fluctuance Physical Exam Physical Exam: erythema, to palmar forearm, small open area no fluctuance no axillary lymphadenopathy Results & Data Results & Data Vital Signs (Past 12 Hours) Vital Signs Temp Pulse Pulse Resp BP BP Pulse Ox 06/09/23 17:36 97.9 F 78 16 127/88 97 06/09/23 16:15 98.2 F 88 17 114/79 99 06/09/23 08:35 97.9 F 71 116/75 100 O2 Del Method 06/09/23 17:36 Room Air 06/09/23 16:15 Room Air 06/09/23 08:35 Room Air Laboratory Results review cbc review chemistry PG Care Time/CCT Total # of Minutes Spent Total Time Spent with Patient: Total time spent is greater than 50% in coordination of care (as documented) at patient's floor/unit and/or counseling patient: Coding Level of Care Code 08742 SUB INP/OBS CARE MIN Diagnoses Cellulitis and abscess of upper extremity L03.119; L02.419
[2023-06-10 07:50] LABS: Basophils # (auto) 0.03 K/uL (0.00-0.20); Basophils % (auto) 0.9 %; Eosinophils # (auto) 0.19 K/uL (0.00-0.50); Hematocrit (blood only) 36.3 % (37.0-47.0); Hemoglobin 11.7 g/dl (12.0-16.0); Lymphocytes # (auto) 0.95 K/uL (1.20-3.40); Mean Corpuscular Hemoglobin 29.5 pg (25.0-34.0); Mean Corpuscular Hgb Conc 32.2 g/dL (32.0-36.0); Mean Corpuscular Volume 91.7 fL (80.0-100.0); Mean Platelet Volume 9.5 fL (9.4-12.4); Monocytes # (auto) 0.34 K/uL (0.11-0.59); Monocytes % (auto) 10.7 %; Neutrophils # (auto) 1.66 K/uL (1.40-6.50); Neutrophils % (auto) 52.4 %; Platelet Count 241 K/uL (130-400); RDW Coefficient of Variation 12.8 % (11.5-14.5); RDW Standard Deviation 42.9 fL (36.4-46.3); Red Blood Count 3.96 M/uL (4.20-5.40); White Blood Count 3.17 K/ul (4.8-10.8)
[2023-06-10 08:15] LABS: Potassium 4.1 mmol/L (3.5-5.1)
[2023-06-10 08:20] LABS: BUN Creatinine Ratio 18.3 (10-20); Creatinine Clr Calc Pharmacy 105.2 ml/min; Est GFR (Non-African American) 115.6 ml/min
--- NOTE | 2023-06-10 19:54 | Discharge Summary ---
Date of Service June 10, 2023 Admission HPI Per Admitting Provider Rayna Vela is a 38 year old female with no significant PMH who presented to the [facility] ED on 06/08/23 due to concerns for worsening left forearm infection/cellulitis. She remained stable in the ED with CBC and CMP WNL. Per the patient, she originally noted a small, round, and firm blister-like abnormality on the ventral aspect of her left forearm approximately 2-3 months ago. She denies any trauma or skin damage to the area prior to this abnormality forming. It was not bothering her so she left it alone. On 06/03 the area started to become erythematous and tender to palpation. She was seen by her PCP on 06/04 for this issue, they attempted a needle aspiration of the site but were unable to obtain a sample. She was started on Doxycycline on 06/04. She was seen in the PCP's office again on 06/05 as the erythema, swelling, and pain were increasing. Due to this they sent her to the ED for further evaluation. Per the patient and the ED note, the patient had the area lanced. She did not watch herself, but per the ED documentation the patient did have pustulous drainage. The area was reported to be irrigated thoroughly with normal saline and the area was inspected for possible foreign bodies. She was instructed to continue her Doxycycline for a total of 48 hours from initial prescription on 06/04/23. She was prescribed Keflex and Bactrim to be started if her symptoms progressed after 48 hours of Doxycycline. She states that she started the Bactrim and Keflex on the morning of 06/07 due to progressive erythema, swelling, and pain. Due to her symptoms progressing on Bactrim and Keflex she returned to the ED today. She denies recent fever, chills, nausea, vomiting, chest pain, SOB, LUE paresthesias, difficulty closing/opening left hand, and recent trauma to the region. After discussing risks/benefits of attempting another incision/drainage of the abscess, the patient elected to proceed. A bedside, US Guided I&D of the left forearm abscess was performed by Dr. Ramsey with culture obtained. Please refer to Dr. Ramsey's attestation for any changes to the treatment plan Principal Diagnosis Left forearm cellulitis with small abscess status post incision and drainage in the emergency MSSA by culture Discharge Exam Interval improvement of cellulitis by receding from lines of demarcation. No tenosynovitis or lymphadenopathy seen or exam Discharge Data Allergies Allergy/AdvReac Type Severity Reaction Status Date / Time Penicillins Allergy Severe SHORTNESS Verified 06/08/23 15:18 OF BREATH Consultations 06/08/23 14:52 ED Decision to Admit Stat Hospital Course (1) Cellulitis and abscess of upper extremity: - -Currently stable and non-toxic appearing -Returned to the ED on 06/08/23 after having a left forearm abscess drained in the [facility] ED on 06/05/23 -Patient was on Doxycycline from 06/04-06/06 and was switched to Keflex and Bactrim starting 06/07/23 without improvement in symptoms Difficult to believe that MSSA did fail all these outpatient medications. Also culture was taken after being on these antibiotics. Initial I&D did not have culture performed. Subsequently will have the patient go home on linezolid to complete a 7-day course with close follow-up with her outpatient physician Dr. Treviño. Linezolid was chosen after improvement after being started on daptomycin here in the emergency department Total Time Total Time Spent Total Time Spent (In Minutes): It required less than 30 minutes to prepare this patient for discharge. Discharge Plan Discharge Items Patient Disposition: Home - Self-Care Reason For Visit: WORSENING UPPER EXTREMITY CELLULITIS Discharge Diagnosis: upper extremity cellulitis Activity: Per Instructions section Activity Comment: keep arm elevated as you can Non-emergency contact: Primary Care Provider Call non-emergency contact if: your symptoms worsen Follow-up/Referrals: Damir Krueger [Primary Care Provider] - 06/11/23 1:25 pm (with Dr. Mccullough) Diet: Regular Addtl Attending Provider Instructions: elevated your arm at rest please follow up with Dr Krueger Pending Studies at Discharge: Yes Studies:: wound culture Stand-Alone Forms: My [email or web address], Smoking Cessation Medications and DC Order Prescriptions: New linezolid 600 mg tablet 600 mg PO BID Qty: 14 0RF Continued hydroxyzine HCl 25 mg tablet 25 mg PO HS Rx Instructions: TAKE 1 TABLET BY MOUTH AT BEDTIME FOR ALLERGY Discontinued sulfamethoxazole-trimethoprim [Bactrim DS] 800-160 mg tablet 1 tab PO BID 7 Days Qty: 14 0RF Rx Instructions: started 06/05/23 cephalexin 500 mg capsule 500 mg PO Q8H 7 Days Qty: 21 0RF Rx Instructions: started 06/05/23 Discharge Orders: Discharge Order (Routine); Ordered 06/10/23 Ordered By: Estiven Lopez Admission Data Admit Date/Time: 06/08/23 14:55 Attending Provider: Estiven Lopez Admit Provider: Tien Ramsey Primary Care Provider: Damir Krueger Other Providers: Tien Ramsey Other Interventions: Discharge Summary Assessment (RN) Last Done: 06/10/23 16:14 Coding Level of Care Code 78658 IN/OBS DISCH 30 MIN/LESS Diagnoses Cellulitis and abscess of upper extremity L03.119; L02.419
[2023-06-11 23:27] LABS: Babesia microti DNA Not Detected (Not Detected)
== END 2023-06-10 17:06 | disposition home or self-care (01) ==
LOC: ED 11:15 → EDINP 11:15 → SUATTDRO 14:55 → 3N 17:51
DX: Z88.0 Allergy status to penicillin; Z79.899 Other long term (current) drug therapy; L02.419 Cutaneous abscess of limb, unspecified; L03.119 Cellulitis of unspecified part of limb